=== PATIENT | male | born 1970 | race American Indian/Alaskan Native ===

== ENCOUNTER 2018-05-30 13:56 | Emergency (ER) | payer BC, OTHER ==
[2018-05-30] MEDS ORDERED: TESSALON PERLES PO ONE (14:26)
[2018-05-30] MEDS ORDERED: PROVENTIL IH ONE (14:29)
[2018-05-30] MEDS ORDERED: DECADRON IM ONE (14:29)
--- NOTE | 2018-05-30 14:43 | Emergency Department Report ---
Upper Respiratory HPI - HPI Chief Complaint: Sore Throat Stated Complaint: TROUBLE BREATHING Time Seen by Provider: 05/30/18 14:22 Duration: 3 Days URI Symptoms: Rhinorrhea: No, Sore Throat: No, Ear Pain: No, Cough: Yes, Shortness of Breath: No, Sick Contacts: No, Unable to Take Fluids: No, Urine Output Abnormal: No, Listless Behavior: No Other History: There is a 47-year-old male nontoxic in appearance with no signs of distress presents to the ER complaining of nonproductive cough 3 days. 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 Patient states that ever since that he has this nonproductive dry cough. Patient denies any other upper rest her symptoms. Patient stated that he was blowing his nose and did have slight bleeding but it is under control now. Patient denies any chest pain, short of breath, fever, chills, nausea, vomiting, headache, stiff neck, numbness or tingling. Patient denies any abdominal pain. Patient denies any allergies significant past medical history. - Home Meds and Allergies Home Medications: Home Medications Medication Instructions Recorded Confirmed Last Taken amLODIPine 10 mg PO DAILY 08/29/16 08/29/16 Unknown metFORMIN 500 mg PO BID 08/29/16 08/29/16 Unknown Previous Rx's Medication Instructions Recorded Last Taken Type Cyclobenzaprine [Flexeril 10 MG 10 mg PO BID PRN #15 tablet 08/29/16 Unknown Rx TAB] Ibuprofen [Motrin] 600 mg PO Q8H PRN #20 tablet 08/29/16 Unknown Rx Benzonatate [Tessalon Perle] 100 mg PO Q8H PRN #20 capsule 05/30/18 Unknown Rx Prednisone [predniSONE 10 mg 10 mg PO .TAPER #1 tab.ds.pk 05/30/18 Unknown Rx (6-Day Pack, 21 Tabs)] Allergies/Adverse Reactions: Allergies Allergy/AdvReac Type Severity Reaction Status Date / Time No Known Allergies Allergy Unverified 08/29/16 06:38 ED Review of Systems ROS: Stated complaint: TROUBLE BREATHING Other details as noted in HPI Constitutional: denies: chills, fever Eyes: denies: eye pain, eye discharge, vision change ENT: denies: ear pain, throat pain Respiratory: cough. denies: shortness of breath, wheezing Cardiovascular: denies: chest pain, palpitations Endocrine: no symptoms reported Gastrointestinal: denies: abdominal pain, nausea, diarrhea Genitourinary: denies: urgency, dysuria Musculoskeletal: denies: back pain, joint swelling, arthralgia Skin: denies: rash, lesions Neurological: denies: headache, weakness, paresthesias Psychiatric: denies: anxiety, depression Hematological/Lymphatic: denies: easy bleeding, easy bruising ED Past Medical Hx - Past Medical History Previous Medical History?: Yes Hx Hypertension: Yes Hx Diabetes: Yes - Surgical History Past Surgical History?: No - Social History Smoking Status: Never Smoker Substance Use Type: Alcohol - Medications Home Medications: Home Medications Medication Instructions Recorded Confirmed Last Taken Type Cyclobenzaprine [Flexeril 10 MG 10 mg PO BID PRN #15 tablet 08/29/16 Unknown Rx TAB] Ibuprofen [Motrin] 600 mg PO Q8H PRN #20 tablet 08/29/16 Unknown Rx amLODIPine 10 mg PO DAILY 08/29/16 08/29/16 Unknown History metFORMIN 500 mg PO BID 08/29/16 08/29/16 Unknown History Benzonatate [Tessalon Perle] 100 mg PO Q8H PRN #20 capsule 05/30/18 Unknown Rx Prednisone [predniSONE 10 mg 10 mg PO .TAPER #1 tab.ds.pk 05/30/18 Unknown Rx (6-Day Pack, 21 Tabs)] ED Bronchiolitis Physical Exam - Exam General: Vital signs noted. No distress. Alert and acting appropriately. Neurologic: Alert and oriented, no deficits. Musculoskeletal: Unremarkable. ED Bronchiolitis Tests - Testing Testing: CXR: Normal/Negative Treatments - Treaments Treatment: Improved Albuterol ED Physical Exam - General Limitations: No Limitations General appearance: alert, in no apparent distress - Head Head exam: Present: atraumatic, normocephalic - Eye Eye exam: Present: normal appearance Pupils: Present: normal accommodation - ENT ENT exam: Present: normal exam, mucous membranes moist - Neck Neck exam: Present: normal inspection, full ROM. Absent: tenderness, meningismus, lymphadenopathy - Respiratory Respiratory exam: Present: normal lung sounds bilaterally. Absent: respiratory distress, wheezes, rales, rhonchi, stridor, chest wall tenderness, accessory muscle use, decreased breath sounds, prolonged expiratory - Cardiovascular Cardiovascular Exam: Present: regular rate, normal rhythm, normal heart sounds. Absent: bradycardia, tachycardia, irregular rhythm, systolic murmur, diastolic murmur, rubs, gallop - GI/Abdominal GI/Abdominal exam: Present: soft, normal bowel sounds. Absent: distended, tenderness, guarding, rebound, rigid, diminished bowel sounds - Rectal Rectal exam: Present: deferred - Extremities Exam Extremities exam: Present: normal inspection, full ROM, normal capillary refill. Absent: tenderness, joint swelling - Back Exam Back exam: Present: normal inspection, full ROM. Absent: tenderness, CVA tenderness (R), CVA tenderness (L), muscle spasm, paraspinal tenderness, vertebral tenderness, rash noted - Neurological Exam Neurological exam: Present: alert, oriented X3, normal gait - Psychiatric Psychiatric exam: Present: normal affect, normal mood - Skin Skin exam: Present: warm, dry, intact, normal color. Absent: rash ED Course Vital Signs 05/30/18 14:06 Temperature 97.7 F Pulse Rate 95 H Respiratory 20 Rate Blood Pressure 141/84 O2 Sat by Pulse 98 Oximetry - Reevaluation(s) Reevaluation #1: 05/30/18 14:39 Patient is speaking in full sentences with no signs of distress noted. - Consultations Consultation #1: 05/30/18 14:39 Patient has been consulted with Gurvinder from poison control about patient history and physical exam is coated patient could receive some steroids, attributed and patient at home should breathing in heat humidifier nebulizer. ED Medical Decision Making - Medical Decision Making This is a 47-year-old male presents with cough. Patient is stable and was examined by me. Patient was consulted with poison control. Chest x-ray has been obtained and dictated by the radiologist. Was notified of the x-ray report no questions noted by the patient. Patient received albuterol and Decadron and Tessalon Perles ER. Patient stated that symptoms are improving subside. Patient was instructed and educated on steam water shower and to breath it as this may help him. Patient was instructed to Follow-up with a primary care doctor in 3-5 days or if symptoms worsen and continue return to emergency room as soon as possible. At time of discharge, the patient does not seem toxic or ill in appearance. No acute signs of distress noted. Patient agrees to discharge treatment plan of care. No further questions noted by the patient. Critical care attestation.: If time is entered above; I have spent that time in minutes in the direct care of this critically ill patient, excluding procedure time. ED Disposition Clinical Impression: Bronchitis Disposition: [id number] TO HOME OR SELFCARE Is pt being admited?: No Does the pt Need Aspirin: No Condition: Stable Instructions: Acute Bronchitis (ED) Additional Instructions: Follow-up with a primary care doctor in 3-5 days or if symptoms worsen and continue return to emergency room as soon as possible. As instructed and educated to you in the ED, use steam bath with hot air to breathe in for a few mins on and off. Call poison control if symptoms worsen. Prescriptions: Benzonatate [Tessalon Perle] 100 mg PO Q8H PRN #20 capsule PRN Reason: Cough Prednisone [predniSONE 10 mg (6-Day Pack, 21 Tabs)] 10 mg PO .TAPER #1 tab.ds.pk Referrals: PRIMARY CAREMD [Referring] - 3-5 Days MARTHA CORRAL MD [Staff Physician] - 3-5 Days [facility] [Outside] - 3-5 Days [facility] [Outside] - 3-5 Days Forms: Work/School Release Form(ED)
--- NOTE | 2018-05-30 16:25 | XRay Report ---
FINAL REPORT EXAM: XR CHEST ROUTINE 2V HISTORY: cough TECHNIQUE: Frontal and lateral chest x-ray. PRIORS: None. FINDINGS: Cardiac and mediastinal silhouette within normal limits. Lungs are normally expanded, without significant vascular congestion. No focal consolidation, apparent pleural effusion or pneumothorax. Mild levoconvex curvature of thoracic spine. IMPRESSION: 1. No acute consolidation.
[2018-05-30 16:52] VITALS: BP 135/76
== END 2018-05-30 16:53 | disposition home or self-care (01) ==
LOC: ED 13:56
DX: J40 Bronchitis, not specified as acute or chronic (principal); I10 Essential (primary) hypertension; E11.9 Type 2 diabetes mellitus without complications
CPT/HCPCS: 71046; 94640; 96372; 99283; J1100